=== PATIENT | female | born 1965 | race Asian ===

== ENCOUNTER 2017-02-23 21:25 | Inpatient (IN) | payer MEDICAID, OTHER ==
[~2017-02-23] VITALS: Ht 154.9 cm; Wt 58.1 kg
[~2017-02-23 21:25] MED LIST: VICODIN PO
[2017-02-23] MEDS ORDERED: ASPIRIN 81MG TABLET PO ONE (23:00)
[2017-02-23] MEDS ORDERED: NITROGLYCERIN 0.4MG TABLET SL SL PRN (23:00)
[2017-02-23] MEDS ORDERED: DOCUSATE SODIUM 100MG CAPSULE PO PRN (23:30)
[2017-02-23] MEDS ORDERED: GUAIFENESIN 200MG/10ML SUGAR FREE UDC PO PRN (23:30)
[2017-02-23] MEDS ORDERED: ACETAMINOPHEN 325MG TABLET PO PRN (23:30)
[2017-02-23] MEDS ORDERED: MAGNESIUM/ALUMINUM HYDROXIDE/SIMETHICONE 30ML UDC PO PRN (23:30)
[2017-02-23] MEDS ORDERED: ONDANSETRON HCL 4MG/2ML VIAL IV PRN (23:30)
[2017-02-23] MEDS ORDERED: NA PHOS,M-B/NA PHOS,DI-BA ENEMA 118ML PR PRN (23:30)
[2017-02-23] MEDS ORDERED: IPRATROPIUM/ALBUTEROL 0.5-3(2.5)MG/3ML NEB INH PRN (23:30)
[2017-02-23] MEDS ORDERED: HYDROCODONE/ACETAMINOPHEN 5/325MG TABLET PO PRN (23:30)
[2017-02-23] MEDS ORDERED: CLONIDINE 0.1MG TABLET PO PRN (23:30)
[2017-02-23] MEDS ORDERED: ENOXAPARIN 40MG/0.4ML SYR SUBCUT SCH (23:30)
[2017-02-23] MEDS ORDERED: HYDROMORPHONE HCL/PF 2MG/ML CPJ IV PRN (23:30)
[2017-02-23] MEDS ORDERED: LORAZEPAM 2MG/ML CPJ IV PRN (23:30)
[2017-02-23] MEDS ORDERED: DIPHENHYDRAMINE 50MG/ML VIAL IV PRN (23:30)
[2017-02-23 23:33] LABS: BASOPHILS % 1.3 % (0.0-2.0); EOSINOPHILS % 2.8 % (0.0-5.0); HEMATOCRIT. 26.7 % (36.0-48.0); HEMOGLOBIN. 8.2 g/dL (12.0-16.0); LYMPHOCYTES % 25.1 % (20.0-50.0); MEAN CORPUSCULAR HEMOGLOBIN 17.7 pg (28.0-32.0); MEAN CORPUSCULAR VOLUME 57.9 fL (81.0-99.0); MEAN PLATELET VOLUME 8.9 fl (7.4-10.4); MONOCYTES % 7.9 % (2.0-8.0); NEUTROPHILS % 62.9 % (40.0-76.0); PLATELET 179 x1000/uL (130-400); RED BLOOD CELL COUNT 4.61 mill/uL (4.2-5.4); RED CELL DISTRIBUTION WIDTH 20.2 % (11.6-14.6)
[2017-02-23 23:38] LABS: PLATELET ESTIMATE NORMAL
[2017-02-23 23:48] LABS: CARBON DIOXIDE 27 mEq/L (21-32); CHLORIDE 108 mEq/L (98-107); TROPONIN I < 0.02 ng/mL (0.00-0.04)
[2017-02-24] MEDS ORDERED: NA PHOS,M-B/NA PHOS,DI-BA ENEMA 118ML PR PRN (08:15)
[2017-02-24 08:30] VITALS: BP 139/91
[2017-02-24] MEDS: ENOXAPARIN 40MG/0.4ML SYR SUBCUT SCH (09:00)
[2017-02-24] MEDS ORDERED: ASPIRIN 81MG EC TABLET PO SCH (09:00)
[2017-02-24 09:37] LABS: BASOPHILS % 1.4 % (0.0-2.0); EOSINOPHILS % 1.8 % (0.0-5.0); HEMOGLOBIN. 9.5 g/dL (12.0-16.0); LYMPHOCYTES % 10.8 % (20.0-50.0); MEAN CORPUSCULAR HEMOGLOBIN 17.8 pg (28.0-32.0); MEAN CORPUSCULAR VOLUME 58.1 fL (81.0-99.0); MEAN PLATELET VOLUME 9.3 fl (7.4-10.4); MONOCYTES % 3.4 % (2.0-8.0); NEUTROPHILS % 82.6 % (40.0-76.0); PLATELET 199 x1000/uL (130-400); RED BLOOD CELL COUNT 5.33 mill/uL (4.2-5.4)
[2017-02-24] MEDS: PANTOPRAZOLE 40MG DR TABLET PO SCH (09:38)
[2017-02-24] MEDS: ASPIRIN 81MG EC TABLET PO SCH (09:38)
[2017-02-24] MEDS: HYDROMORPHONE HCL/PF 2MG/ML CPJ IV PRN ×2 (09:39→16:27)
[2017-02-24 10:36] LABS: CARBON DIOXIDE 27 mEq/L (21-32); CHLORIDE 108 mEq/L (98-107); HDL CHOLESTEROL 48 mg/dL (40-59); LDL CHOLESTEROL 95 mg/dL (5-100); T4 FREE 1.03 ng/dL (0.76-1.46)
[2017-02-24] MEDS ORDERED: AMLO5TAB4 PO (11:51)
[2017-02-24 12:00] VITALS: BP 128/76
[2017-02-24] MEDS ORDERED: ONDANSETRON HCL 4MG/2ML VIAL IV PRN ×2 (14:45→22:00)
[2017-02-24 15:53] LABS: CREATINE KINASE 86 IU/L (26-192); CREATINE KINASE MB FRACTION 1.8 ng/mL (0.5-3.6); TROPONIN I < 0.02 ng/mL (0.00-0.04)
[2017-02-24 16:00] VITALS: BP 137/84
[2017-02-24 20:00] VITALS: BP 137/73
[2017-02-24 23:17] LABS: CREATINE KINASE 79 IU/L (26-192); CREATINE KINASE MB FRACTION 0.9 ng/mL (0.5-3.6); TROPONIN I < 0.02 ng/mL (0.00-0.04)
[2017-02-25] VITALS: BP 131/79
[2017-02-25] MEDS ORDERED: DIPHENHYDRAMINE 50MG/ML VIAL IV PRN (00:30)
[2017-02-25 04:00] VITALS: BP 115/66
[2017-02-25 06:02] LABS: CREATINE KINASE 77 IU/L (26-192); CREATINE KINASE MB FRACTION 1.2 ng/mL (0.5-3.6); TROPONIN I < 0.02 ng/mL (0.00-0.04)
[2017-02-25 07:59] VITALS: BP 119/62
[2017-02-25] MEDS: ASPIRIN 81MG EC TABLET PO SCH (08:15)
[2017-02-25] MEDS: ENOXAPARIN 40MG/0.4ML SYR SUBCUT SCH (08:15)
[2017-02-25] MEDS: PANTOPRAZOLE 40MG DR TABLET PO SCH (08:15)
[2017-02-25] MEDS ORDERED: REGADENOSON 0.4 MG/5 ML IV ONE ×2 (10:00→12:05)
[2017-02-25 11:51] VITALS: BP_SYST 119; BP_SYST 132; BP_DIAS 62; BP_DIAS 77
[2017-02-25 12:00] VITALS: BP 132/77
== END 2017-02-25 14:15 | disposition home or self-care (01) | DRG 243 ==
LOC: EDBEDREQ 23:13 → ER 02-24 01:24 → 7WST 02-24 01:31 → ENRESERV 02-24 07:13 → ER 02-24 08:12
PROVIDERS: ADMIT Internal Medicine; ATTEND Internal Medicine
DX: K21.9 Gastro-esophageal reflux disease without esophagitis (principal); I10 Essential (primary) hypertension; D64.9 Anemia, unspecified; Z79.899 Other long term (current) drug therapy
CPT/HCPCS: 36415; 71010; 78452; 80053; 80061; 82550; 82553; 83036; 83880; 84439; 84443; 84484; 85025; 85379; 93005; 93017; 93306; 99285; A9500; J1170; J1200; J1650; J2405; J2785

== ENCOUNTER 2017-05-04 18:47 | Emergency (ER) | payer MEDICAID, OTHER ==
[~2017-05-04] VITALS: Ht 157.5 cm; Wt 58.0 kg
[~2017-05-04 18:47] MED LIST changes: +AMLO5TAB4 PO; -VICODIN PO
[2017-05-05] MEDS ORDERED: KETOROLAC 30MG/ML VIAL IV STA (01:06)
[2017-05-05] MEDS ORDERED: SODIUM CHLORIDE 0.9% 1,000 ML IV ONE (01:06)
[2017-05-05 01:38] LABS: BASOPHILS % 0.4 % (0.0-2.0); EOSINOPHILS % 3.5 % (0.0-5.0); HEMOGLOBIN. 10.1 g/dL (12.0-16.0); MEAN CORPUSCULAR HEMOGLOBIN 17.9 pg (28.0-32.0); MEAN CORPUSCULAR VOLUME 58.5 fL (81.0-99.0); MONOCYTES % 7.5 % (2.0-8.0); NEUTROPHILS % 63.6 % (40.0-76.0); PLATELET 194 x1000/uL (130-400); RED BLOOD CELL COUNT 5.64 mill/uL (4.2-5.4); RED CELL DISTRIBUTION WIDTH 20.9 % (11.6-14.6)
[2017-05-05 01:41] LABS: PLATELET ESTIMATE NORMAL
[2017-05-05 01:44] LABS: CHLORIDE 104 mEq/L (98-107)
[2017-05-05 01:47] LABS: CLARITY URINE CLEAR (CLEAR); COLOR URINE YELLOW (YELLOW); GLUCOSE URINE NEGATIVE (NEGATIVE); KETONES URINE NEGATIVE (NEGATIVE); LEUKOCYTE ESTERASE URINE 1+ (NEGATIVE); NITRITE URINE NEGATIVE (NEGATIVE); OCCULT BLOOD URINE NEGATIVE (NEGATIVE); PROTEIN URINE NEGATIVE (NEGATIVE); SPECIFIC GRAVITY URINE 1.017 (1.005-1.030); UROBILINOGEN URINE 0.2 E.U./dL (0.2-1.0)
[2017-05-05 01:53] LABS: CARBON DIOXIDE 28 mEq/L (21-32)
[2017-05-05 03:00] VITALS: BP 146/49
== END 2017-05-05 04:15 | disposition home or self-care (01) ==
LOC: ER 18:47
DX: R10.9 Unspecified abdominal pain (principal); I10 Essential (primary) hypertension
CPT/HCPCS: 36415; 71010; 74176; 80053; 81001; 83690; 85025; 96361; 96374; 99285; J1885; J7030; Z7610

== ENCOUNTER 2019-04-02 19:31 | Emergency (ER) | payer MEDICARE ==
[~2019-04-02] VITALS: Ht 160 cm; Wt 54.0 kg
[2019-04-02] MEDS ORDERED: DIAZEPAM 5 MG TABLET PO ONE (21:00)
[2019-04-03 00:16] VITALS: BP 150/78
== END 2019-04-03 01:02 | disposition home or self-care (01) ==
LOC: ER 19:31
DX: M54.12 Radiculopathy, cervical region (principal); M48.02 Spinal stenosis, cervical region; I10 Essential (primary) hypertension
CPT/HCPCS: 99284